=== PATIENT | female | born 1955 | race Caucasian/White ===

== ENCOUNTER → 2021-03-24 | Outpatient (CLI) | payer OTHER ==
[~2021-03-24] MED LIST: IBUPROFEN200 M1 PO; IBUPROFEN400 MG PO; METFORMIN HCL1000 MG PO; METOPROLOL TAR100 MG PO; NOVOLIN
[2021-03-24 12:07] LABS: HEMOGLOBIN 13.5 gm/dl (12.3-15.3); RED BLOOD COUNT 4.69 M/UL (4.00-5.10); WHITE BLOOD COUNT 8.4 K/UL (4.5-11.0)
[2021-03-24 12:22] LABS: BUN/CREATININE RATIO 16 (0-10)
== END ==
LOC: OPSV2 03-18 11:30 → EDSTATUS 12:00 → OPSV2 12:00
PROVIDERS: Orthopaedic Surgery
DX: Z01.818 Encounter for other preprocedural examination (principal); M17.12 Unilateral primary osteoarthritis, left knee
CPT/HCPCS: 36415; 80048; 83036; 85025; 93005

== ENCOUNTER 2021-04-06 07:18 | Day surgery (SDC) | payer OTHER ==
[~2021-04-06] VITALS: Ht 167.6 cm; Wt 73.5 kg
[2021-04-06] MEDS ORDERED: NOVOLIN 70100 UNIT/1 SQ (08:40)
[2021-04-06 09:44] LABS: BUN/CREATININE RATIO 12 (0-10)
[2021-04-06] MEDS ORDERED: HYDROCODON-ACE1 EAC2 PO (15:38)
[2021-04-07 07:35] LABS: HEMOGLOBIN 9.3 gm/dl (12.3-15.3); RED BLOOD COUNT 3.34 M/UL (4.00-5.10); WHITE BLOOD COUNT 14.1 K/UL (4.5-11.0)
[2021-04-07 08:33] LABS: BUN/CREATININE RATIO 25 (0-10)
[2021-04-08 03:24] LABS: HEMOGLOBIN 8.5 gm/dl (12.3-15.3); WHITE BLOOD COUNT 11.6 K/UL (4.5-11.0)
[2021-04-08 03:36] LABS: BUN/CREATININE RATIO 25 (0-10)
[2021-04-08 03:49] LABS: RED BLOOD COUNT 2.97 M/UL (4.00-5.10)
[2021-04-09 04:55] LABS: RED BLOOD COUNT 2.81 M/UL (4.00-5.10); WHITE BLOOD COUNT 10.9 K/UL (4.5-11.0)
[2021-04-09 05:15] LABS: BUN/CREATININE RATIO 22 (0-10)
== END 2021-04-09 09:15 ==
LOC: M/S 07:18 → OR 07:18 → EDSTATUS 12:30 → OR 12:30 → M/S 16:04 → OR 04-09 09:15
PROVIDERS: Orthopaedic Surgery
DX: M17.12 Unilateral primary osteoarthritis, left knee (principal); G89.29 Other chronic pain; M25.762 Osteophyte, left knee; D62 Acute posthemorrhagic anemia; E11.9 Type 2 diabetes mellitus without complications; I10 Essential (primary) hypertension; K21.9 Gastro-esophageal reflux disease without esophagitis; I25.10 Atherosclerotic heart disease of native coronary artery without angina pectoris; I73.9 Peripheral vascular disease, unspecified; Z95.5 Presence of coronary angioplasty implant and graft; Z90.710 Acquired absence of both cervix and uterus; Z72.0 Tobacco use; Z20.822 Contact with and (suspected) exposure to COVID-19
CPT/HCPCS: 36415; 73560; 80048; 82962; 85025; 86850; 86900; 86901; 97110-GP-CQ; 97116; 97116-GP-CQ; 97161; 97166; 97530; 97530-GP-CQ; 97535; C1776; J0690; J1100; J2001; J2250; J2270; J2405; J2704; J2795; J3370; J7030; J7120; U0002

== ENCOUNTER 2021-09-14 06:34 | Observation (INO) | payer OTHER ==
[~2021-09-14] VITALS: Ht 167.6 cm; Wt 72.6 kg
[~2021-09-14 06:34] MED LIST changes: +AMLODIPINE BESY10 MG PO; +HYDROCODON-ACE1 EAC2 PO; +NOVOLIN 70100 UNIT/1 SQ; +VITAMIN D325 MCG PO
[2021-09-14 07:25] LABS: BUN/CREATININE RATIO 17 (0-10)
[2021-09-14] MEDS ORDERED: ASPIRIN EC81 MG PO (07:48)
[2021-09-14] MEDS ORDERED: HYDROCODON-ACE1 EAC2 PO (15:25)
[2021-09-15 09:33] LABS: HEMOGLOBIN 8.5 gm/dl (12.3-15.3); RED BLOOD COUNT 3.01 M/UL (4.00-5.10); WHITE BLOOD COUNT 16.4 K/UL (4.5-11.0)
[2021-09-15 09:54] LABS: BUN/CREATININE RATIO 35 (0-10)
--- NOTE | 2021-09-15 13:10 | NUR ---
1410- PT REQUESTING SOMETHING FOR NAUSEA, NOTIFIED DR. MAST. ORDERED ZOFRAN 4MG Q 6HRS PRN. WILL CONTINUE TO MONITOR.
[2021-09-16 02:55] LABS: HEMOGLOBIN 7.8 gm/dl (12.3-15.3); RED BLOOD COUNT 2.77 M/UL (4.00-5.10); WHITE BLOOD COUNT 12.7 K/UL (4.5-11.0)
[2021-09-16 03:45] LABS: BUN/CREATININE RATIO 38 (0-10)
--- NOTE | 2021-09-16 12:55 | NUR ---
PROVIDER MADE AWARE ABOUT PATIENT COMPLAINS OF PALPITATIONS. NEW ORERS GIVEN
[2021-09-16] MEDS ORDERED: HYDROCODON-ACE1 EAC2 PO (14:55)
[2021-09-16 14:57] LABS: HEMOGLOBIN 8.2 gm/dl (12.3-15.3)
[2021-09-16 15:29] LABS: BUN/CREATININE RATIO 29 (0-10)
[2021-09-17 07:19] LABS: BUN/CREATININE RATIO 34 (0-10)
[2021-09-17 13:02] LABS: HEMOGLOBIN 8.9 gm/dl (12.3-15.3)
[2021-09-17 13:04] LABS: RED BLOOD COUNT 3.06 M/UL (4.00-5.10)
[2021-09-18 04:36] LABS: HEMOGLOBIN 8.4 gm/dl (12.3-15.3); RED BLOOD COUNT 2.96 M/UL (4.00-5.10); WHITE BLOOD COUNT 10.2 K/UL (4.5-11.0)
[2021-09-18 04:49] LABS: BUN/CREATININE RATIO 34 (0-10)
[2021-09-18] MEDS ORDERED: LOPRESSOR 50 MG50 MG PO (11:20)
[2021-09-18] MEDS ORDERED: ELIQUIS 2.5 MG2.5 MG PO (11:20)
--- NOTE | 2021-09-18 15:17 | NUR ---
CALLED REPORT TO JACKELYN RAMIREZ AT THIS TIME FOR HOME HEALTH.
== END 2021-09-18 15:28 | disposition home or self-care (01) ==
LOC: OR 06:34 → EDSTATUS 10:15 → OR 15:12 → M/S 15:12
PROVIDERS: Internal Medicine Infectious Disease; Nurse Practitioner Family; Physician Assistant; ADMIT Orthopaedic Surgery
DX: M17.11 Unilateral primary osteoarthritis, right knee (principal); M21.161 Varus deformity, not elsewhere classified, right knee; I10 Essential (primary) hypertension; K21.9 Gastro-esophageal reflux disease without esophagitis; E11.9 Type 2 diabetes mellitus without complications; I25.10 Atherosclerotic heart disease of native coronary artery without angina pectoris; D62 Acute posthemorrhagic anemia; R00.0 Tachycardia, unspecified; J44.9 Chronic obstructive pulmonary disease, unspecified; Z96.652 Presence of left artificial knee joint; Z95.5 Presence of coronary angioplasty implant and graft; Z72.0 Tobacco use; Z91.040 Latex allergy status; Z88.8 Allergy status to other drugs, medicaments and biological substances; Z79.82 Long term (current) use of aspirin
CPT/HCPCS: 36415; 73560; 80048; 80053; 82962; 83735; 83880; 84443; 85014; 85018; 85025; 86850; 86900; 86901; 86920; 93005; 97110; 97110-GP-CQ; 97116-GP-CQ; 97162; 97166; 97530-GP-CQ; 97535; C1713; C1776; G0378; J0171; J0690; J1100; J1170; J2405; J2795; J7030; J7120; P9016